=== PATIENT | male | born 1960 | race African-American/Black ===

== ENCOUNTER 2017-12-09 09:53 | Emergency (ER) | payer MEDICAID ==
[~2017-12-09] VITALS: Ht 180.3 cm; Wt 76.0 kg
[2017-12-09] MEDS ORDERED: ONDANSETRON HCL 4MG/2ML VIAL IV STA (10:34)
[2017-12-09] MEDS ORDERED: MORPHINE SULFATE 4 MG/ML CPJ (NOT FOR IM USE) IV STA (10:34)
[2017-12-09] MEDS ORDERED: SODIUM CHLORIDE 0.9% 1,000 ML IV ONE (10:34)
[2017-12-09 11:02] LABS: HEMATOCRIT. 43.5 % (42.0-52.0); HEMOGLOBIN. 14.2 g/dL (14.0-18.0); MEAN CORPUSCULAR HEMOGLOBIN 27.9 pg (28.0-32.0); MEAN CORPUSCULAR VOLUME 85.6 fL (80.0-94.0); MEAN PLATELET VOLUME 7.6 fl (7.4-10.4); MONOCYTES % 8.2 % (2.0-8.0); NEUTROPHILS % 68.8 % (40.0-76.0); PLATELET 329 x1000/uL (130-400); RED BLOOD CELL COUNT 5.08 mill/uL (4.7-6.1)
[2017-12-09 11:09] LABS: CLARITY URINE CLEAR (CLEAR); COLOR URINE YELLOW (YELLOW); KETONES URINE NEGATIVE (NEGATIVE); LEUKOCYTE ESTERASE URINE 1+ (NEGATIVE); NITRITE URINE NEGATIVE (NEGATIVE); OCCULT BLOOD URINE NEGATIVE (NEGATIVE); PROTEIN URINE NEGATIVE (NEGATIVE); SPECIFIC GRAVITY URINE 1.016 (1.005-1.030); UROBILINOGEN URINE 0.2 E.U./dL (0.2-1.0)
[2017-12-09 11:23] LABS: CARBON DIOXIDE 29 mEq/L (21-32); CHLORIDE 106 mEq/L (98-107)
[2017-12-09 11:49] LABS: *AMPHETAMINES SCREEN URINE NEGATIVE (NEGATIVE); *BARBITURATES SCREEN URINE NEGATIVE (NEGATIVE); *BENZODIAZEPINES SCREEN URINE NEGATIVE (NEGATIVE); *COCAINE SCREEN URINE NEGATIVE (NEGATIVE); CANNABINOID URINE SCREEN NEGATIVE (NEGATIVE); METHADONE URINE SCREEN NEGATIVE (NEGATIVE); OPIATES URINE SCREEN NEGATIVE (NEGATIVE); PHENCYCLIDINE URINE SCREEN NEGATIVE (NEGATIVE)
[2017-12-09 13:26] VITALS: BP 117/75
== END 2017-12-09 13:31 | disposition home or self-care (01) ==
LOC: ER 10:08
DX: R10.9 Unspecified abdominal pain (principal); F17.200 Nicotine dependence, unspecified, uncomplicated
CPT/HCPCS: 36415; 80053; 80305; 81001; 83690; 85025; 96374; 96375; 99284; J2270; J2405; J7030; Z7610

== ENCOUNTER 2017-12-23 07:08 | Emergency (ER) | payer MEDICAID ==
[2017-12-23] MEDS: SODIUM CHLORIDE 0.9% 1,000 ML IV ONE (08:48)
[2017-12-23] MEDS: FAMOTIDINE 20MG/2ML VIAL IV STA (08:52)
[2017-12-23] MEDS: KETOROLAC 15MG/ML VIAL IV ONE (08:52)
[2017-12-23] MEDS: ONDANSETRON HCL 4MG/2ML VIAL IV STA (08:52)
[2017-12-23 09:28] LABS: INR 1.1
[2017-12-23 09:29] LABS: BASOPHILS % 0.7 % (0.0-2.0); EOSINOPHILS % 4.3 % (0.0-5.0); HEMATOCRIT. 39.2 % (42.0-52.0); HEMOGLOBIN. 12.7 g/dL (14.0-18.0); LYMPHOCYTES % 19.5 % (20.0-50.0); MEAN CORPUSCULAR HEMOGLOBIN 27.6 pg (28.0-32.0); MEAN CORPUSCULAR VOLUME 85.1 fL (80.0-94.0); MONOCYTES % 8.8 % (2.0-8.0); NEUTROPHILS % 66.7 % (40.0-76.0); PLATELET 378 x1000/uL (130-400); RED CELL DISTRIBUTION WIDTH 13.9 % (11.6-14.6)
[2017-12-23 09:38] LABS: CHLORIDE 110 mEq/L (98-107)
[2017-12-23 09:48] LABS: CARBON DIOXIDE 25 mEq/L (21-32)
[2017-12-23] MEDS: MORPHINE SULFATE 4 MG/ML CPJ (NOT FOR IM USE) IV ONE (09:49)
[2017-12-23 10:49] LABS: CLARITY URINE CLEAR (CLEAR); COLOR URINE YELLOW (YELLOW); KETONES URINE NEGATIVE (NEGATIVE); LEUKOCYTE ESTERASE URINE 1+ (NEGATIVE); NITRITE URINE NEGATIVE (NEGATIVE); OCCULT BLOOD URINE NEGATIVE (NEGATIVE); PH URINE 5.5 (4.5-8.0); PROTEIN URINE NEGATIVE (NEGATIVE); SPECIFIC GRAVITY URINE 1.018 (1.005-1.030)
[2017-12-23 12:45] VITALS: BP 122/79
== END 2017-12-23 13:06 | disposition home or self-care (01) ==
LOC: ER 07:23
DX: K59.00 Constipation, unspecified (principal); F17.200 Nicotine dependence, unspecified, uncomplicated
CPT/HCPCS: 36415; 71045; 74021; 80053; 81001; 83690; 85025; 85610; 96361; 96374; 96375; 99285; J1885; J2270; J2405; J3490; J7030; Z7610

== ENCOUNTER 2017-12-24 03:28 | Emergency (ER) | payer MEDICAID ==
[~2017-12-24] VITALS: Ht 182.9 cm; Wt 77.0 kg
[2017-12-24] MEDS ORDERED: PANTOPRAZOLE SODIUM 40 MG/VIAL IV STA (07:06)
[2017-12-24] MEDS ORDERED: KETOROLAC 30MG/ML VIAL IV ONE (07:15)
[2017-12-24 07:35] LABS: BASOPHILS % 0.9 % (0.0-2.0); EOSINOPHILS % 4.8 % (0.0-5.0); HEMATOCRIT. 38.7 % (42.0-52.0); HEMOGLOBIN. 13.1 g/dL (14.0-18.0); LYMPHOCYTES % 23.1 % (20.0-50.0); MEAN CORPUSCULAR HEMOGLOBIN 28.6 pg (28.0-32.0); MEAN CORPUSCULAR VOLUME 84.5 fL (80.0-94.0); MEAN PLATELET VOLUME 7.8 fl (7.4-10.4); MONOCYTES % 7.7 % (2.0-8.0); NEUTROPHILS % 63.5 % (40.0-76.0); PLATELET 375 x1000/uL (130-400); RED BLOOD CELL COUNT 4.58 mill/uL (4.7-6.1); RED CELL DISTRIBUTION WIDTH 14.1 % (11.6-14.6)
[2017-12-24 07:36] LABS: CARBON DIOXIDE 28 mEq/L (21-32); CHLORIDE 107 mEq/L (98-107)
[2017-12-24] MEDS ORDERED: IOHEXOL-300 100 ML BOTTLE ONE ×2 (08:08→11:08)
[2017-12-24 11:41] VITALS: BP 161/98
== END 2017-12-24 11:42 | disposition home or self-care (01) ==
LOC: ER 03:29
DX: R10.13 Epigastric pain (principal)
CPT/HCPCS: 36415; 74177; 80053; 83690; 85025; 96374; 96375; 99285; C9113; J1885; Q9967

== ENCOUNTER 2018-02-03 22:33 | Emergency (ER) | payer MEDICAID ==
[~2018-02-03] VITALS: Ht 182.9 cm; Wt 61.0 kg
[2018-02-03 22:45] VITALS: BP 144/96
== END 2018-02-04 03:00 | disposition left against medical advice (07) ==
LOC: ER 22:33
DX: Z53.21 Procedure and treatment not carried out due to patient leaving prior to being seen by health care provider (principal)

== ENCOUNTER 2018-02-22 12:50 | Emergency (ER) | payer MEDICAID ==
[~2018-02-22] VITALS: Ht 182.9 cm; Wt 61.5 kg
[2018-02-22 13:04] VITALS: BP 140/86
== END 2018-02-22 17:58 | disposition left against medical advice (07) ==
LOC: ER 14:43
DX: Z53.21 Procedure and treatment not carried out due to patient leaving prior to being seen by health care provider (principal); R10.9 Unspecified abdominal pain; Z76.0 Encounter for issue of repeat prescription; F17.200 Nicotine dependence, unspecified, uncomplicated; G89.29 Other chronic pain